=== PATIENT | male | born 1980 | race Two or more races ===

== ENCOUNTER 2021-08-16 12:27 | Emergency (ER) | payer OTHER ==
[2021-08-16 13:25] LABS: BASOPHIL 0.3 % (0-2); EOSINOPHIL 1.7 % (0-5); HCT 45.2 % (42.0-52.0); HGB 15.2 g/dl (13.2-18.0); LYMPHOCYTE 32.2 % (15-48); MCH 33.1 pg (25.0-31.0); MCHC 33.6 g/dL (32.0-36.0); MCV 98.5 fL (78.0-100.0); MONOCYTE 4.8 % (0-12); MPV 9.1 fL (6.0-9.5); NEUTROPHIL 60.9 % (41-80); NRBC 0; PLT 263 K/uL (150-400); RBC 4.59 M/uL (4.70-6.00); RDW 13.3 % (11.5-14.0)
[2021-08-16 13:36] LABS: BILIRUBIN - TOTAL 0.5 mg/dL (0.2-1.0); BUN/CREAT RATIO (CALC) 30.1 RATIO; CREATININE 0.73 mg/dL (0.67-1.17); GLOBULIN (CALCULATION) 3.7 g/dL; POTASSIUM 3.9 mmol/L (3.5-5.1); TOTAL PROTEIN 7.7 g/dL (6.4-8.2)
[2021-08-16 13:54] LABS: CORONAVIRUS 2019 SARS-COV-2 NEGATIVE (NEGATIVE); INFLUENZA A NAA NEGATIVE (NEGATIVE)
[2021-08-16 14:30] LABS: BILIRUBIN NEGATIVE (NEGATIVE); BLOOD NEGATIVE Ery/uL (NEGATIVE); CLARITY CLEAR (CLEAR); COLOR YELLOW (YELLOW); GLUCOSE (U) NORMAL (NORMAL); LEUKOCYTES NEGATIVE Leu/uL (NEGATIVE); NITRITE NEGATIVE (NEGATIVE); PROTEIN NEGATIVE (NEGATIVE); UROBILINOGEN 0.2 mg/dL (0.2-1.0); pH 7.5 (5.0-9.0)
[2021-08-16] MEDS ORDERED: ANTIVERT25 MG PO (16:08)
== END 2021-08-16 16:22 | disposition home or self-care (01) ==
LOC: FER 12:27
PROVIDERS: Nurse Practitioner Family
DX: H81.11 Benign paroxysmal vertigo, right ear (principal); Z20.822 Contact with and (suspected) exposure to COVID-19
CPT/HCPCS: 36415; 80053; 81003; 85025; 93005; U0002